=== PATIENT | male | born 1985 | race African-American/Black ===

== ENCOUNTER 2017-08-24 13:44 | Emergency (ER) | payer SELFPAY ==
[~2017-08-24] VITALS: Ht 182.9 cm; Wt 86.2 kg
[2017-08-24] MEDS ORDERED: CEPHALEXIN500 MG ORAL (14:24)
[2017-08-24] MEDS ORDERED: BENADRYL25 MG ORAL (14:24)
[2017-08-24] MEDS ORDERED: BACTRIM DS TAB1 EAC1 ORAL (14:24)
[2017-08-24] MEDS ORDERED: KENALOG 0.5% CR15 GM APPLIC (14:24)
[2017-08-24 14:29] VITALS: BP 139/98
[2017-08-24 14:30] VITALS: BP 139/98
--- NOTE | 2017-08-24 22:25 | Emergency Room Report ---
History of Present Illness General Chief Complaint: Skin Rash/Abscess Source: Patient Present Illness [facility] The patient is a 31-year-old male presenting for rash. He states that he noticed red lesions primarily over the arms, abdomen, and legs approximately one week prior for no known reason. He denies any known allergies and denies using any new products. He states that this was primarily itchy and then began to be painful 2 days prior. Described as a 5/10 dull ache. He states that he noticed a large red patch of skin on the left thigh which is tender to touch. He denies any fever or chills. He denies any other symptoms including nausea, vomiting, chest pain, shortness of breath, diarrhea, dysuria, penile discharge Allergies: Coded Allergies: No Known Allergies (Unverified , 08/24/17) Patient History Past Medical History: see triage record Pertinent Family History: none Reviewed Nursing Documentation: PMH: Agreed, PSxH: Agreed Nursing Documentation-PMH Past Medical History: No Stated History Review of Systems All Other Systems: negative except mentioned in HPI Physical Exam Vital Signs Date Time Temp Pulse Resp B/P (MAP) Pulse Ox O2 Delivery O2 Flow Rate FiO2 08/24/17 13:55 98.1 95 20 139/98 99 Room Air Sp02 EP Interpretation: reviewed, normal General Appearance: no apparent distress, alert, GCS 15, non-toxic Head: normocephalic, atraumatic Eyes: bilateral eye normal inspection, bilateral eye PERRL ENT: hearing grossly normal, normal pharynx, no angioedema, normal voice Neck: full range of motion, supple/symm/no masses Respiratory: chest non-tender, lungs clear, normal breath sounds, speaking full sentences Gastrointestinal: normal bowel sounds, non tender, soft, non-distended, no guarding, no rebound Genitourinary: normal inspection, no CVA tenderness, penis normal, scrotum normal Musculoskeletal: back normal, gait/station normal, normal range of motion, non- tender Neurologic: alert, oriented x3, responsive, motor strength/tone normal, sensory intact, speech normal Psychiatric: judgement/insight normal, memory normal, mood/affect normal, no suicidal/homicidal ideation Skin: rash - dry, thickened skin of the flexor surfaces of arms, legs, and neck. Erythema, edema, tednerness to L inguinal region Medical Decision Making PA Attestation Dr. Perez is my supervising physician. Patient management was discussed with my supervising physician Diagnostic Impression: Primary Impression: Cellulitis Qualified Codes: L03.90 - Cellulitis, unspecified Additional Impression: Eczema Qualified Codes: L30.9 - Dermatitis, unspecified ER Course The patient is a 31-year-old male presenting for rash. Ddx considered include but not limited to insect bite, contact dermatitis, eczema, cellulitis, abscess, STD PE: afebrile. NAD dry, thickened skin of the flexor surfaces of arms, legs, and neck. Erythema, edema, tenderness to L inguinal region. No fluctuance. : no testicular or penile tenderness or lesions. The patient is given prescriptions for topical steroids which he will apply to the eczematous regions only. He is also given prescription for antibiotics for treatment of cellulitis of the left thigh Last Vital Signs Date Time Temp Pulse Resp B/P (MAP) Pulse Ox O2 Delivery O2 Flow Rate FiO2 08/24/17 14:30 98.1 68 20 139/98 99 Room Air Status: improved Disposition: HOME, SELF-CARE Condition: Improved Scripts Trimethoprim/Sulfamethoxazole 160/800* (BACTRIM DS TABLET*) 1 Each Tablet 1 TAB ORAL TWICE A DAY, #14 TAB Prov: TERZIAN,MAYITO P.A. 08/24/17 Cephalexin* (KEFLEX*) 500 Mg Capsule 500 MG ORAL EVERY 6 HOURS, #28 CAP Prov: TERZIAN,MAYITO P.A. 08/24/17 Triamcinolone Acet (Triamcinolone Acetonide) 15 Gm Cream..g. 15 GM APPLIC TID, #15 GM Prov: TERZIAN,MAYITO P.A. 08/24/17 Diphenhydramine Hcl* (BENADRYL*) 25 Mg Capsule 25 MG ORAL Q6H Y for Itching, #30 CAP Prov: TERZIAN,MAYITO P.A. 08/24/17 Referrals: NOT CHOSEN IPA/MD,REFERRING (PCP) Patient Instructions: Cellulitis, Rash Additional Instructions: I discussed my findings with the patient. All questions and concerns have been answered. Treatment and medication compliance have been addressed. I advised the patient that they need to follow up with PMD in 3-5 days. Return to ED if symptoms worsen, new symptoms arise, or if needed for any reason. Patient verbalized understanding of discharge instructions. TERZIAN,MAYITO P.A. Aug 24, 2017 22:24
== END 2017-08-24 14:31 | disposition home or self-care (01) ==
LOC: EMR 14:10
DX: L03.90 Cellulitis, unspecified (principal); L30.9 Dermatitis, unspecified; R21 Rash and other nonspecific skin eruption
CPT/HCPCS: 99283

== ENCOUNTER 2018-11-18 16:25 | Emergency (ER) | payer SELFPAY ==
[~2018-11-18] VITALS: Ht 180.3 cm; Wt 86.2 kg
[~2018-11-18 16:25] MED LIST: BACTRIM DS TAB1 EAC1 ORAL; BENADRYL25 MG ORAL; CEPHALEXIN500 MG ORAL; KENALOG 0.5% CR15 GM APPLIC
[2018-11-18] MEDS ORDERED: AMOXICILLIN500 MG ORAL (16:41)
[2018-11-18] MEDS ORDERED: TYLENOL EXTRA500 MG ORAL (16:41)
--- NOTE | 2018-11-18 16:41 | Emergency Room Report ---
History of Present Illness General Chief Complaint: Sore Throat Source: Patient Present Illness HPI 33-year-old male patient presents the ER complaining of sore throat for the past 3 days. Reports subjective fever at home during this time, states he did not take his temperature, afebrile in the ER currently. Denies cough. Denies vomiting. Denies chest pain, shortness of breath or abdominal pain. Denies any other acute symptoms at this time. Denies diarrhea. Allergies: Coded Allergies: No Known Allergies (Unverified , 08/24/17) Patient History Past Medical History: see triage record Reviewed Nursing Documentation: PMH: Agreed; PSxH: Agreed Nursing Documentation-PMH Past Medical History: No History, Except For Hx Asthma: Yes Review of Systems All Other Systems: negative except mentioned in HPI Physical Exam Vital Signs Date Time Temp Pulse Resp B/P (MAP) Pulse Ox O2 Delivery O2 Flow Rate FiO2 11/18/18 16:28 99.1 79 17 152/89 97 Room Air Sp02 EP Interpretation: reviewed, normal General Appearance: well appearing, no apparent distress, alert, GCS 15, non- toxic Head: normocephalic, atraumatic Eyes: bilateral eye normal inspection, bilateral eye PERRL ENT: hearing grossly normal, normal pharynx, no angioedema, normal voice, TMs + canals normal, uvula midline, moist mucus membranes, tonsillar swelling, pharyngeal erythema, tonsillar exudate Neck: full range of motion Respiratory: lungs clear, normal breath sounds, no rhonchi, no respiratory distress, no accessory muscle use, no wheezing, speaking full sentences Cardiovascular #1: regular rate, rhythm, no edema Musculoskeletal: back normal, digits/nails normal, gait/station normal, normal range of motion, non-tender Psychiatric: mood/affect normal Skin: no rash Lymphatic: adenopathy - cervical Medical Decision Making PA Attestation Dr. Ramirez Medicare Attestation Dr. Perez is my supervising Physician whom patient management has been discussed with. Diagnostic Impression: Primary Impression: Tonsillitis ER Course pt presents to ED c/o sore throat. DDX considered but are not limited to influenza, viral URI, strep throat, pharyngitis, tonsillitis. no uvula deviation, no neck stiffness, no stridor, no tripoding, low suspicion for peritonsillar abscess. VITAL SIGNS are WNL, patient is afebrile ER COURSE: Provided with viscous lidocaine. tonsillar exudates, pharyngeal erythema, lymphadenopathy, no cough, likely pharyngitis. Will provide antibiotic treatment. Continue taking Tylenol for relief of symptoms. saltwater gargles. Drink plenty of fluids. Symptomatic treatment. ER precautions given. DISCHARGE: Rx provided for amoxicillin -Rx given for Acetaminophen for fever/pain. At this time pt is stable for d/c to home. Patient resting comfortably, in no acute distress, nontoxic appearing, talking without difficulty Patient to take medications as instructed. Will provide with patient care instructions and any necessary prescriptions. Care plan and follow-up instructions provided. Patient instructed to follow-up with primary care provider in 3 - 5 days. Patient questions asked and answered. ER precautions given. Patient instructed to return to ER immediately for any new or worsening of symptoms including but not limited to fever, SOB, difficulty swallowing. - Please note that this Emergency Department Report was dictated using [employer] technology software, occasionally this can lead to erroneous entry secondary to interpretation by the dictation equipment. Last Vital Signs Date Time Temp Pulse Resp B/P (MAP) Pulse Ox O2 Delivery O2 Flow Rate FiO2 11/18/18 16:28 99.1 79 17 152/89 97 Room Air Status: improved Disposition: HOME, SELF-CARE Condition: Stable Scripts Amoxicillin* (AMOXIL*) 500 Mg Capsule 500 MG ORAL EVERY 8 HOURS for 7 Days, #21 CAP Prov: Amish Saul 11/18/18 Acetaminophen* (TYLENOL EXTRA STRENGTH*) 500 Mg Tablet 500 MG ORAL Q8H PRN for Prn Headache/Temp > 101, #30 TAB 0 Refills Prov: Amish Saul 11/18/18 Patient Instructions: Tonsillitis Additional Instructions: Followup with primary care provider in 3 -5 days. Salt water gargles Take Tylenol for pain and fever symptoms Drink plenty of water. Take medications as directed. Patient questions asked and answered. ER precautions given, patient instructed to return to ER immediately for any new or worsening of symptoms including but not limited to intractable vomiting, difficulty breathing, inability to eat. Amish Saul Nov 18, 2018 16:41
[2018-11-18] MEDS ORDERED: Lidocaine 2% Visc 15ml soln ORAL ONE (16:45)
[2018-11-18 18:11] VITALS: BP 152/89
--- NOTE | 2018-11-18 18:12 | NUR ---
ED Nurse Note: Discharge instructions given to pt. Answered all questions,. Left w/ steady gait. ID band removed.
--- NOTE | 2018-11-18 18:12 | NUR ---
ED Nurse Note: Pt came in for sore throat for a couple days. Pt is A + O x4. Am,bulatory.
== END 2018-11-18 16:48 | disposition home or self-care (01) ==
LOC: EMR 16:48
DX: J03.90 Acute tonsillitis, unspecified (principal); J45.909 Unspecified asthma, uncomplicated
CPT/HCPCS: 99282